=== PATIENT | female | born 1990 | race African-American/Black ===

== ENCOUNTER 2020-03-17 07:15 | Inpatient (IN) | payer BC ==
[2020-03-17 08:14] VITALS: BMI 33.1
[2020-03-17] MEDS ORDERED: AMPICILLIN - 2 GM in SODIUM CHLORIDE 100 ML IVPB ONE (08:25)
--- NOTE | 2020-03-17 08:29 | HP ---
Past Medical History - Primary Care Physician PCP:: Espinoza Prescott - Admission Chief Complaint: 38.4 weeks, gestational HTN, for induction of labor History of Present Illness: 29 yo f with hx of HTN , admitted for pitocin induction, no headache, no blurred vision , no RUQ pain , risks associated with induction and pitocin discussed with patient , agreed to be induced, cx 2 to3 cm,80 vx -2, mi, fhr cat 1, no contraction History Source: Patient Limitations to Obtaining History: No Limitations - Past Medical History Cardiovascular: Yes: HTN ...: 1 ...LMP: 06/25/19 ... Weeks Gestation by Dates: 37.6 ...EDC by Dates: 04/01/20 ...EDC by Sono: 03/28/20 Heme/Onc: Yes: Anemia - Past Surgical History Past Surgical History: Yes: Bariatric Surgery Hx Myomectomy: No Hx Transabdominal Cerclage: No - Smoking History Smoking history: Never smoked Have you smoked in the past 12 months: No - Alcohol/Substance Use Hx Alcohol Use: No - Social History Usual Living Arrangement: Yes: With Spouse History of Recent Travel: No Home Medications - Allergies Allergies/Adverse Reactions: Allergies Allergy/AdvReac Type Severity Reaction Status Date / Time No Known Allergies Allergy Verified 03/17/20 08:56 - Home Medications Home Medications: Ambulatory Orders Tablet 1 tab PO DAILY 03/17/20 Review of Systems - Review of Systems Constitutional: reports: No Symptoms Eyes: reports: No Symptoms HENT: reports: No Symptoms Neck: reports: No Symptoms Cardiovascular: reports: No Symptoms Respiratory: reports: No Symptoms Gastrointestinal: reports: No Symptoms Genitourinary: reports: No Symptoms Breasts: reports: No Symptoms Reported Musculoskeletal: reports: No Symptoms Integumentary: reports: No Symptoms Neurological: reports: No Symptoms Endocrine: reports: No Symptoms Hematology/Lymphatic: reports: No Symptoms Psychiatric: reports: No Symptoms Physical Exam - Maternity Vital Signs: Vital Signs Temperature 98.3 F 03/17/20 08:04 Pulse Rate 83 03/17/20 08:04 Respiratory Rate 18 03/17/20 08:04 Blood Pressure 150/96 03/17/20 08:04 O2 Sat by Pulse Oximetry (%) Constitutional: Yes: Obese Neck: Yes: WNL Cardiovascular: Yes: WNL Lungs: Normal air movement Breast(s): Yes: WNL - Abdominal Exam/OB Number of Fetuses: Single Presentation: Vertex Contractions: No Intensity: Unaware Monitor Mode: External Heart Rate Location: [facility] Category: I Accelerations: Non-Uniform Decelerations: None - Vaginal Exam/OB Vaginal Bleeding: No Speculum Exam: No Dilatation (cm): 2 cm Effacement (%): 80 Amniotic Membrane Status: Intact Presentation: Vertex/Position Station: -2 - Physical Exam Musculoskeletal: Yes: WNL Edema: Yes Edema: LLE: Trace, RLE: Trace Deep Tendon Reflex Grade: Normal +2 Psychiatric: Yes: WNL Hemorrhage Risk Assessment - Risk Factors Medium Risk Factors: Yes: None Risk Score: 1 Risk Level: Medium Risk Problem List - Problems (1) with 38 completed weeks gestation Code(s): Z3A.38 - 38 WEEKS GESTATION OF (2) Gestational hypertension Code(s): O13.9 - GESTATIONAL HTN W/O SIGNIFICANT PROTEINURIA, UNSP TRIMESTER Qualifiers: Trimester: third trimester Qualified Code(s): O13.3 - Gestational [-induced] hypertension without significant proteinuria, third trimester (3) Obesity affecting in third trimester Code(s): O99.213 - OBESITY COMPLICATING , THIRD TRIMESTER Assessment/Plan admit [facility] pitocin induction pain management HELLP profile monitor BP in labor , if symptomatic will start MGso4
[2020-03-17] MEDS ORDERED: ELECTROLYTE-148 SOLN 1,000 ML IV SCH ×2 (08:30→10:30)
[2020-03-17] MEDS ORDERED: OXYTOCIN 30 UNITS in 0.9% NS 30 UNIT/500 ML INFUS.BAG IVPB SCH (08:30)
[2020-03-17] MEDS: DEXTROSE 5%-LACTATED RINGERS 1,000 ML IV SCH (09:00)
[2020-03-17] MEDS ORDERED: OXYTOCIN 30 UNITS in 0.9% NS 30 UNIT/500 ML INFUS.BAG IVPB ONE (09:06)
[2020-03-17] MEDS ORDERED: AMPICILLIN SODIUM 2 GM VIAL ONE (09:06)
[2020-03-17 09:45] LABS: BASO % 0.3 % (0-2.0); EOS % 0.5 % (0-4.5); HEMATOCRIT 32.7 % (32.4-45.2); HEMOGLOBIN 10.8 GM/dL (10.7-15.3); LYMPH % 11.6 % (8-40); MCH 27.2 pg (25.7-33.7); MCHC 33.2 g/dl (32.0-36.0); MEAN PLT VOLUME 8.5 fl (7.5-11.1); MONO % 7.3 % (3.8-10.2); NEUT % 80.3 % (42.8-82.8); PLATELET COUNT 291 K/MM3 (134-434); RBC 3.98 M/mm3 (3.60-5.2); RDW 13.1 % (11.6-15.6); WHITE BLOOD COUNT 13.1 K/mm3 (4.0-10.0)
[2020-03-17 09:54] LABS: INR 0.98 (0.83-1.09); PROTHROMBIN TIME (PATIENT) 11.6 SEC (9.7-13.0)
[2020-03-17 09:57] LABS: ACTIVATED PTT 29.3 SECONDS (25.2-36.5)
[2020-03-17 10:13] LABS: BLOOD UREA NITROGEN 5.9 mg/dL (7-18); CALCIUM 8.9 mg/dL (8.5-10.1); CREATININE 0.6 mg/dL (0.55-1.3); POTASSIUM 3.8 mmol/L (3.5-5.1); URIC ACID 2.9 mg/dL (2.6-7.2)
[2020-03-17] MEDS ORDERED: FENTANYL/BUPIVACAINE/NS/PF - PCEA - 50 ML DISP.SYRIN EP ONE (10:24)
[2020-03-17 10:28] LABS: GAMMA GLUTAMYL TRANSPEPTIDASE 25 U/L (5-85); SGOT/AST 14 U/L (15-37); SGPT/ALT 19 U/L (13-61)
[2020-03-17] MEDS ORDERED: NALOXONE HCL 0.4 MG/ML VIAL IVPUSH PRN (10:28)
[2020-03-17] MEDS ORDERED: FENTANYL/BUPIVACAINE/NS/PF - PCEA - 50 ML DISP.SYRIN EP SCH ×2 (10:30→11:43)
[2020-03-17] MEDS ORDERED: BUPIVACAINE HCL/PF 0.25% (2.5MG/ML) 10 ML VIAL ONE ×2 (10:31→13:26)
[2020-03-17 11:59] LABS: EPI CELLS >36 /uL (0-25.1); HYALINE CASTS 3 /uL (0-3.1); PH,URINE 6.5 (5.0-8.0); URINE APPEARANCE CLOUDY; URINE BACTERIA 433 /uL (0-1359); URINE BILIRUBIN NEGATIVE (NEGATIVE); URINE COLOR YELLOW; URINE GLUCOSE (UA) NEGATIVE (NEGATIVE); URINE KETONE 1+ (NEGATIVE); URINE LEUK ESTERASE 2+ (NEGATIVE); URINE NITRITE NEGATIVE (NEGATIVE); URINE PROTEIN NEGATIVE (NEGATIVE); URINE RBC 330 /uL (0-23.9); URINE UROBILINOGEN 0.2 mg/dL (0.2-1.0); URINE WBC 59 /uL (0-25.8)
[2020-03-17] MEDS ORDERED: AMPICILLIN SODIUM 1 GM VIAL ONE (12:37)
[2020-03-17] MEDS ORDERED: OXYTOCIN 20 UNITS in 0.9% NS 20 UNIT/1,000 ML INFUS.BAG IV ONE (14:30)
[2020-03-17 15:13] LABS: CORD HCO3 23.6 mmHg (20-29); CORD PCO2 71.6 mmHg (30-78); CORD pH 7.136 (7.14-7.44)
[2020-03-17 15:15] LABS: CORD BASE EXCESS -7.7 mmol/L (0-2); CORD HCO3 16.8 mmHg (20-29); CORD PCO2 31.7 mmHg (30-78); CORD pH 7.341 (7.14-7.44)
[2020-03-17] MEDS ORDERED: WITCH HAZEL 50% (TUCKS) 40 PAD/JAR PAD TP PRN (17:53)
[2020-03-17] MEDS ORDERED: BISACODYL 10 MG SUPP.RECT RC PRN (17:53)
[2020-03-17] MEDS ORDERED: BENZOCAINE 28 GM HEMORRHOIDAL OINTMENT TP PRN (17:53)
[2020-03-17] MEDS ORDERED: BENZOCAINE 20% 57 GM BOTTLE TP PRN (17:53)
[2020-03-17] MEDS ORDERED: METHYLERGONOVINE MALEATE 0.2 MG/1 ML AMP IM PRN (17:53)
--- NOTE | 2020-03-17 18:10 | PN ---
Delivery - Delivery Vaginal Delivery: Spontaneous (cx full , head on pernium, , median episiotmy done ,head delivered ,cord around neck once , reduced . ant. and post. shoulder with no difficulty , live baby girl 9/9 . placenta complete . 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
[2020-03-17] MEDS: AMPICILLIN - 1 GM in SODIUM CHLORIDE 100 ML IVPB SCH ×2 (18:20→23:30)
[2020-03-17] MEDS: IBUPROFEN 600 MG TABLET (FP) PO PRN (20:40)
[2020-03-17] MEDS: ACETAMINOPHEN 325 MG TABLET (FP) PO PRN (20:41)
[2020-03-18] MEDS ORDERED: LABETALOL HCL 200 MG TABLET (FP) PO PRN (00:38)
[2020-03-18] MEDS: ACETAMINOPHEN 325 MG TABLET (FP) PO PRN ×2 (05:44→20:46)
[2020-03-18] MEDS: IBUPROFEN 600 MG TABLET (FP) PO PRN (05:45)
--- NOTE | 2020-03-18 06:29 | PN ---
Progress Note (short form) - Note Progress Note: ppd1 , doing well, no c/o, no headache Last Vital Signs Temp Pulse Resp BP Pulse Ox 98.3 F 94 H 18 144/85 99 03/18/20 06:00 03/18/20 06:00 03/18/20 06:00 03/18/20 06:00 03/17/20 14:15 abdomen soft, no distension , no cva , no ruq tenderness uterus firm, non tender no calf tenderness no excess vaginal bleeding plan ambulate , cbc monitor bp for d/c hpme in am if bp normal Problem List - Problems (1) with 38 completed weeks gestation Code(s): Z3A.38 - 38 WEEKS GESTATION OF (2) Gestational hypertension Code(s): O13.9 - GESTATIONAL HTN W/O SIGNIFICANT PROTEINURIA, UNSP TRIMESTER Qualifiers: Trimester: third trimester Qualified Code(s): O13.3 - Gestational [-induced] hypertension without significant proteinuria, third trimester (3) Obesity affecting in third trimester Code(s): O99.213 - OBESITY COMPLICATING , THIRD TRIMESTER
[2020-03-18 08:28] LABS: BASO % 0.2 % (0-2.0); EOS % 0.4 % (0-4.5); HEMATOCRIT 30.4 % (32.4-45.2); HEMOGLOBIN 10.2 GM/dL (10.7-15.3); LYMPH % 13.2 % (8-40); MCH 27.6 pg (25.7-33.7); MCHC 33.5 g/dl (32.0-36.0); MEAN CELL VOLUME 82.4 fl (80-96); MEAN PLT VOLUME 8.8 fl (7.5-11.1); MONO % 6.4 % (3.8-10.2); NEUT % 79.8 % (42.8-82.8); PLATELET COUNT 286 K/MM3 (134-434); RBC 3.69 M/mm3 (3.60-5.2); RDW 13.2 % (11.6-15.6); WHITE BLOOD COUNT 15.4 K/mm3 (4.0-10.0)
[2020-03-18] MEDS: FERROUS SO4 325 MG TABLET (FP) PO SCH ×2 (08:50→17:18)
[2020-03-18] MEDS: PRENATAL VITAMINS W/ FOLIC ACID TABLET (FP) PO SCH (09:13)
[2020-03-18] MEDS ORDERED: PATIENT'S OWN MEDICATION (NON-FORMULARY) (Prenatal Tablet 1 TAB) PO SCH (10:00)
[2020-03-18] MEDS: LABETALOL HCL 200 MG TABLET (FP) PO SCH ×2 (20:41→22:00)
[2020-03-18] MEDS ORDERED: SENNOSIDES/DOCUSATE COMBO (SENNA PLUS) TABLET (UD) PO PRN (22:00)
--- NOTE | 2020-03-19 00:31 | PN ---
Post Progress Note - Subjective Subjective: Patient without acute complaints. Denies headache, change in vision, right upper quadrant pain. Reports tolerating oral intake without nausea or vomiting. Ambulating without dizziness. Denies fevers or chills. Pain well controlled with oral pain medication. with supplementation. Passing flatus. Post Day: 2 Type of Delivery: Vital Signs: Vital Signs Temperature 98.2 F 03/18/20 22:02 Pulse Rate 89 03/18/20 22:02 Respiratory Rate 20 03/18/20 22:02 Blood Pressure 132/72 03/18/20 22:02 O2 Sat by Pulse Oximetry (%) 99 03/17/20 14:15 Breast Exam: Yes: Soft Uterus: Yes: Fundus Firm, Fundus below umbilicus Abdomen/GI: Yes: Abdomen soft, Passing flatus. No: Abdominal Distention, Tender Lochia: Yes: Rubra Lochia, amount: Moderate Extremities: Yes: Calves non-tender, Edema (trace) - Labs Labs: CBC WBC 15.4 K/mm3 (4.0-10.0) H 03/18/20 07:15 RBC 3.69 M/mm3 (3.60-5.2) 03/18/20 07:15 Hgb 10.2 GM/dL (10.7-15.3) L 03/18/20 07:15 Hct 30.4 % (32.4-45.2) L 03/18/20 07:15 MCV 82.4 fl (80-96) 03/18/20 07:15 MCH 27.6 pg (25.7-33.7) 03/18/20 07:15 MCHC 33.5 g/dl (32.0-36.0) 03/18/20 07:15 RDW 13.2 % (11.6-15.6) 03/18/20 07:15 Plt Count 286 K/MM3 (134-434) 03/18/20 07:15 MPV 8.8 fl (7.5-11.1) 03/18/20 07:15 Absolute Neuts (auto) 12.3 K/mm3 (1.5-8.0) H 03/18/20 07:15 Neutrophils % 79.8 % (42.8-82.8) 03/18/20 07:15 Lymphocytes % 13.2 % (8-40) 03/18/20 07:15 Monocytes % 6.4 % (3.8-10.2) 03/18/20 07:15 Eosinophils % 0.4 % (0-4.5) 03/18/20 07:15 Basophils % 0.2 % (0-2.0) 03/18/20 07:15 Nucleated RBC % 0 % (0-0) 03/18/20 07:15 Haptoglobin 107 mg/dL (33-278) 03/17/20 09:19 Assessment/Plan 29 yo PPD # 2 s/p , IOL for gHTN, afebrile, vital signs stable, no PEC, stable for DC home today 1. Patient stable for discharge home today. 2. Patient encouraged to contact MD for: - Severe pain not controlled by oral pain medication - Fevers or chills - Nausea or vomiting, intolerance of oral intake - Headache, change in vision, RUQ pain 3. Discussed BP monitoring at home, labetalol with parameters 4. Patient to follow up in office in 1-2 weeks for BP check, 4-6 weeks for visit
--- NOTE | 2020-03-19 00:32 | DS ---
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 ant. and post. shoulder with no difficulty , live baby girl 9/9 . placenta complete . median episiotmy repaired with 20 chromic , ebl 300 cc , no compliction) Type of Anesthesia: Epidural Episiotomy/Laceration: Midline EBL (cc): 300 Delivery, Single - Stages of Labor Date 1st Stage Initiatied: 03/17/20 Time 1st Stage Initiated: 06:00 Date 2nd Stage Initiated: 03/17/20 Time 2nd Stage Initiated: 14:15 Date of Delivery: 03/17/20 Time of Delivery: 14:39 Time Placenta Delivered: 14:43 - Condition of Infant Shift Boss/Flag Decorator Present: No Infant Gender: Male Weight: 5 lb 6 oz Position: Left, OA Total Hours ROM (Hrs/Mins): 2H19M - 1 Minute Total Score: 9 5 Minutes Total Score: 9 - Feeding Plan Initial Plan: Exclusive throughout hospitalization Discharge Summary Problems reviewed: Yes Reason For Visit: INDUCTION OF LABOR Current Active Problems Gestational hypertension (Acute) Obesity affecting in third trimester (Acute) with 38 completed weeks gestation (Acute) Procedures: Principal: vaginal delivery Other Procedures: pitocin induction of labor Hospital Course: Patient was admitted for induction of labor for gHTN. HD # 1 patient received pitocin, progressd to deliver via PPD # 1 patient ambulated, voiding, passing gas, tolerating oral intake and with adequate pain control. BPs well controlled, she did not develop sx PEC. She fulfilled all criteria for discharge PPD #2 Condition: Good - Instructions Diet, Activity, Other Instructions: Follow up in 1-2 wks for BP check; 4-6 wks for visit Physical activity Resume your normal everyday activity as tolerated no heavy lifting or exercise until seen by your surgeon. You may walk unlimited alexus of and climb stairs. You may resume driving the car when you feel safe and comfortable behind the wheel. No sexual activity as instructed. Diet There are no dietary restrictions. Eat healthy, high-fiber foods. Drink 6 to 8 glasses of liquid each day. This will assist in keeping your bowels are regular. Pain management You may take Tylenol or acetaminophen or Ibuprofen (for example, Motrin, Advil etc.) as prescribed for moderate to severe pain. Call MD for any of the following: Severe pain not relieved by medication Fever of 101 or higher Excessive bleeding or drainage on dressing Inability to urinate Referrals: Espinoza Prescott MD [Staff Physician] - Disposition: HOME - Home Medications Comprehensive Discharge Medication List: Ambulatory Orders Tablet 1 tab PO DAILY 03/17/20
[2020-03-19] MEDS: ACETAMINOPHEN 325 MG TABLET (FP) PO PRN (06:00)
[2020-03-19] MEDS: IBUPROFEN 600 MG TABLET (FP) PO PRN (06:01)
[2020-03-19] MEDS: FERROUS SO4 325 MG TABLET (FP) PO SCH (07:53)
[2020-03-19] MEDS: DEXTROSE 5%-LACTATED RINGERS 1,000 ML IV SCH (10:04)
[2020-03-19] MEDS: PRENATAL VITAMINS W/ FOLIC ACID TABLET (FP) PO SCH (10:28)
[2020-03-19] MEDS: LABETALOL HCL 200 MG TABLET (FP) PO SCH (10:30)
[2020-03-19 13:52] VITALS: BP 145/85; PULSE 80; TEMP 98
== END 2020-03-19 13:00 | disposition home or self-care (01) | DRG 807 ==
LOC: JLDR 07:15 → J3W 20:01
PROVIDERS: ADMIT Obstetrics & Gynecology; ATTEND Obstetrics & Gynecology
PROC: 3E033VJ Introduction of Other Hormone into Peripheral Vein, Percutaneous Approach (ICD-10-PCS; principal; 2020-03-17)
PROC: 10E0XZZ Delivery of Products of Conception, External Approach (ICD-10-PCS; 2020-03-17)
PROC: 0W8NXZZ Division of Female Perineum, External Approach (ICD-10-PCS; 2020-03-17)
DX: O13.3 Gestational [pregnancy-induced] hypertension without significant proteinuria, third trimester (principal); Z37.0 Single live birth; O99.214 Obesity complicating childbirth; E66.9 Obesity, unspecified; O69.81X0 Labor and delivery complicated by cord around neck, without compression, not applicable or unspecified; O99.824 Streptococcus B carrier state complicating childbirth; O99.03 Anemia complicating the puerperium; D64.9 Anemia, unspecified; Z3A.38 38 weeks gestation of pregnancy
CPT/HCPCS: 36415; 36600; 59409; 80048; 81003; 82803; 82977; 83010; 84450; 84460; 84550; 85025; 85610; 85730; 86780; 86850; 86900; 86901

== ENCOUNTER 2022-09-24 19:25 | Inpatient (IN) | payer BC ==
[2022-09-24 21:00] VITALS: BMI 35.0
[2022-09-24] MEDS ORDERED: AMPICILLIN - 2 GM in SODIUM CHLORIDE 100 ML IVPB ONE (21:54)
[2022-09-24] MEDS: LABETALOL HCL 100 MG TABLET (FP) PO SCH (22:00)
[2022-09-24 22:06] LABS: BASO % 0.2 % (0-2.0); EOS % 0.9 % (0-4.5); HEMATOCRIT 31.5 % (32.4-45.2); HEMOGLOBIN 10.4 GM/dL (10.7-15.3); MCH 26.2 pg (25.7-33.7); MCHC 33.1 g/dl (32.0-36.0); MEAN CELL VOLUME 79.1 fl (80-96); MEAN PLT VOLUME 8.4 fl (7.5-11.1); MONO % 7.5 % (3.8-10.2); NEUT % 73.4 % (42.8-82.8); PLATELET COUNT 362 10^3/uL (134-434); RBC 3.99 M/mm3 (3.60-5.2); RDW 13.5 % (11.6-15.6); WHITE BLOOD COUNT 9.6 K/mm3 (4.0-10.0)
[2022-09-24] MEDS ORDERED: LABETALOL HCL 100 MG TABLET (FP) ONE (22:06)
[2022-09-24] MEDS ORDERED: BETAMET ACET/BETAMET NA PH 30 MG/5 ML VIAL ONE (22:06)
[2022-09-24 22:15] LABS: ACTIVATED PTT 30.1 SECONDS (25.2-36.5)
[2022-09-24] MEDS: BETAMET ACET/BETAMET NA PH 30 MG/5 ML VIAL IM SCH (22:19)
[2022-09-24 22:52] LABS: INR 1.03 (0.83-1.09)
[2022-09-24] MEDS: ELECTROLYTE-148 SOLN 1,000 ML IV SCH (23:00)
[2022-09-24] MEDS ORDERED: AMPICILLIN SODIUM 2 GM VIAL ONE (23:05)
[2022-09-24 23:32] LABS: BLOOD UREA NITROGEN 7.3 mg/dL (7-18); CALCIUM 9.1 mg/dL (8.5-10.1)
[2022-09-24 23:36] LABS: CREATININE 0.7 mg/dL (0.55-1.3)
[2022-09-25] MEDS: AMPICILLIN - 1 GM in SODIUM CHLORIDE 100 ML IVPB SCH ×6 (02:30→21:58)
[2022-09-25] MEDS ORDERED: AMPICILLIN SODIUM 1 GM VIAL ONE ×6 (03:31→20:55)
[2022-09-25] MEDS: ELECTROLYTE-148 SOLN 1,000 ML IV SCH ×4 (06:15→22:44)
[2022-09-25] MEDS ORDERED: ACETAMINOPHEN INJECTION 100 ML IVPB ONE (07:44)
[2022-09-25] MEDS ORDERED: ACETAMINOPHEN 1000 MG/100 ML BAG IVPB ONE (07:45)
[2022-09-25 09:12] LABS: BASO % 0.1 % (0-2.0); HEMATOCRIT 27.7 % (32.4-45.2); HEMOGLOBIN 9.6 GM/dL (10.7-15.3); LYMPH % 9.5 % (8-40); MCH 27.1 pg (25.7-33.7); MCHC 34.7 g/dl (32.0-36.0); MEAN PLT VOLUME 8.8 fl (7.5-11.1); MONO % 2.3 % (3.8-10.2); NEUT % 88.1 % (42.8-82.8); PLATELET COUNT 360 10^3/uL (134-434); RBC 3.55 M/mm3 (3.60-5.2); RDW 13.6 % (11.6-15.6); WHITE BLOOD COUNT 9.8 K/mm3 (4.0-10.0)
[2022-09-25 09:32] LABS: CALCIUM 9.2 mg/dL (8.5-10.1)
[2022-09-25 09:33] LABS: ALBUMIN 2.7 g/dl (3.4-5.0); BLOOD UREA NITROGEN 5.1 mg/dL (7-18)
[2022-09-25 09:36] LABS: CREATININE 0.6 mg/dL (0.55-1.3)
[2022-09-25 09:38] LABS: URINE APPEARANCE CLEAR; URINE BILIRUBIN NEGATIVE (NEGATIVE); URINE COLOR YELLOW; URINE GLUCOSE (UA) NEGATIVE (NEGATIVE); URINE KETONE NEGATIVE (NEGATIVE); URINE LEUK ESTERASE NEGATIVE (NEGATIVE); URINE NITRITE NEGATIVE (NEGATIVE); URINE PROTEIN NEGATIVE (NEGATIVE)
[2022-09-25 09:38] LABS: BILIRUBIN,TOTAL 0.4 mg/dL (0.2-1)
[2022-09-25 09:41] LABS: TOT PROT 6.4 g/dl (6.4-8.2)
[2022-09-25 09:43] LABS: POC NITRAZINE POS
[2022-09-25] MEDS ORDERED: LABETALOL HCL 100 MG TABLET (FP) ONE ×2 (09:58→20:54)
[2022-09-25] MEDS: LABETALOL HCL 100 MG TABLET (FP) PO SCH ×2 (10:05→21:30)
[2022-09-25] MEDS ORDERED: SODIUM CHLORIDE NASAL SPRAY 44 ML BOTTLE NS PRN (11:30)
[2022-09-25] MEDS: BETAMET ACET/BETAMET NA PH 30 MG/5 ML VIAL IM SCH (21:56)
[2022-09-25] MEDS ORDERED: OXYTOCIN 30 UNITS in 0.9% NS 30 UNIT/500 ML INFUS.BAG IVPB ONE (22:10)
[2022-09-25] MEDS: OXYTOCIN 30 UNITS in 0.9% NS 30 UNIT/500 ML INFUS.BAG IVPB SCH (22:30)
[2022-09-26] MEDS ORDERED: FENTANYL/BUPIVACAINE/NS/PF - PCEA - 50 ML DISP.SYRIN EP ONE ×3 (00:01→08:39)
[2022-09-26] MEDS: FENTANYL/BUPIVACAINE/NS/PF - PCEA - 50 ML DISP.SYRIN EP SCH ×2 (01:20→08:40)
[2022-09-26] MEDS ORDERED: NALOXONE HCL 0.4 MG/ML VIAL IVPUSH PRN (01:25)
[2022-09-26] MEDS: AMPICILLIN - 1 GM in SODIUM CHLORIDE 100 ML IVPB SCH ×4 (02:00→14:46)
[2022-09-26] MEDS ORDERED: AMPICILLIN SODIUM 1 GM VIAL ONE ×2 (02:11→06:31)
[2022-09-26 03:26] LABS: BASO % 0.1 % (0-2.0); HEMATOCRIT 27.4 % (32.4-45.2); HEMOGLOBIN 9.2 GM/dL (10.7-15.3); LYMPH % 7.5 % (8-40); MCH 25.8 pg (25.7-33.7); MCHC 33.4 g/dl (32.0-36.0); MEAN CELL VOLUME 77.3 fl (80-96); MEAN PLT VOLUME 8.7 fl (7.5-11.1); MONO % 3.2 % (3.8-10.2); NEUT % 89.2 % (42.8-82.8); PLATELET COUNT 339 10^3/uL (134-434); RBC 3.55 M/mm3 (3.60-5.2); RDW 13.7 % (11.6-15.6); WHITE BLOOD COUNT 13.2 K/mm3 (4.0-10.0)
[2022-09-26 03:46] LABS: ALBUMIN 2.7 g/dl (3.4-5.0); BLOOD UREA NITROGEN 6.3 mg/dL (7-18)
[2022-09-26 03:49] LABS: CREATININE 0.6 mg/dL (0.55-1.3)
[2022-09-26 03:51] LABS: BILIRUBIN,TOTAL 0.4 mg/dL (0.2-1); TOT PROT 6.4 g/dl (6.4-8.2)
[2022-09-26] MEDS ORDERED: OXYTOCIN 20 UNITS in 0.9% NS 20 UNIT/1,000 ML INFUS.BAG IV ONE (04:46)
[2022-09-26] MEDS ORDERED: LIDOCAINE HCL 1% PRESERVATIVE FREE - 30ML VIAL ONE (04:47)
[2022-09-26] MEDS: ELECTROLYTE-148 SOLN 1,000 ML IV SCH ×2 (06:43→23:50)
[2022-09-26] MEDS ORDERED: LABETALOL HCL 100 MG TABLET (FP) ONE (08:06)
[2022-09-26] MEDS ORDERED: ACETAMINOPHEN INJECTION 100 ML IVPB ONE (08:08)
[2022-09-26] MEDS ORDERED: LABETALOL HCL 100 MG TABLET (FP) PO ONE (09:00)
[2022-09-26] MEDS ORDERED: ACETAMINOPHEN 1000 MG/100 ML BAG IVPB ONE (09:00)
[2022-09-26] MEDS ORDERED: ACETAMINOPHEN 325 MG TABLET (FP) PO PRN (09:38)
[2022-09-26] MEDS ORDERED: WITCH HAZEL 50% (TUCKS) 40 PAD/JAR PAD TP PRN (09:38)
[2022-09-26] MEDS ORDERED: oxyCODONE HCL 5 MG TABLET PO PRN (09:38)
[2022-09-26] MEDS ORDERED: BENZOCAINE 20% 57 GM BOTTLE TP PRN (09:38)
[2022-09-26] MEDS ORDERED: BENZOCAINE 28 GM HEMORRHOIDAL OINTMENT TP PRN (09:38)
[2022-09-26] MEDS ORDERED: BISACODYL 10 MG SUPP.RECT RC PRN (09:38)
[2022-09-26] MEDS ORDERED: OXYTOCIN 20 UNITS in 0.9% NS 20 UNIT/1,000 ML INFUS.BAG IV SCH (09:45)
[2022-09-26] MEDS: PRENATAL VITAMINS W/ FOLIC ACID TABLET (FP) PO SCH (11:28)
[2022-09-26] MEDS: LABETALOL HCL 100 MG TABLET (FP) PO SCH (11:28)
[2022-09-26 11:38] LABS: CORD BASE EXCESS -5.7 mmol/L (0-2); CORD HCO3 23.5 mmHg (20-29); CORD PCO2 60.9 mmHg (30-78); CORD pH 7.205 (7.14-7.44)
[2022-09-26 11:39] LABS: CORD BASE EXCESS -6.7 mmol/L (0-2); CORD PCO2 43.8 mmHg (30-78); CORD pH 7.277 (7.14-7.44)
[2022-09-26] MEDS ORDERED: ACETAMINOPHEN 325 MG TABLET (FP) ONE (14:02)
[2022-09-26] MEDS: IBUPROFEN 600 MG TABLET (FP) PO PRN (21:35)
[2022-09-26] MEDS: LABETALOL HCL 200 MG TABLET (FP) PO SCH (21:35)
[2022-09-26] MEDS: OXYTOCIN 30 UNITS in 0.9% NS 30 UNIT/500 ML INFUS.BAG IVPB SCH (23:48)
[2022-09-27 09:00] LABS: EOS % 0.1 % (0-4.5); HEMATOCRIT 22.7 % (32.4-45.2); HEMOGLOBIN 7.4 GM/dL (10.7-15.3); LYMPH % 14.3 % (8-40); MCH 25.5 pg (25.7-33.7); MCHC 32.4 g/dl (32.0-36.0); MEAN CELL VOLUME 78.5 fl (80-96); MEAN PLT VOLUME 8.2 fl (7.5-11.1); MONO % 5.2 % (3.8-10.2); NEUT % 80.4 % (42.8-82.8); PLATELET COUNT 289 10^3/uL (134-434); RBC 2.89 M/mm3 (3.60-5.2); RDW 13.7 % (11.6-15.6)
[2022-09-27] MEDS: IBUPROFEN 600 MG TABLET (FP) PO PRN (09:23)
[2022-09-27] MEDS: PRENATAL VITAMINS W/ FOLIC ACID TABLET (FP) PO SCH (09:24)
[2022-09-27] MEDS: LABETALOL HCL 200 MG TABLET (FP) PO SCH ×2 (09:24→22:23)
[2022-09-27] MEDS: FERROUS SO4 325 MG TABLET (FP) PO SCH ×2 (10:14→17:28)
[2022-09-27] MEDS ORDERED: SENNOSIDES/DOCUSATE COMBO (SENNA PLUS) TABLET (UD) PO PRN (22:00)
[2022-09-28] MEDS: PRENATAL VITAMINS W/ FOLIC ACID TABLET (FP) PO SCH (09:26)
[2022-09-28] MEDS: LABETALOL HCL 200 MG TABLET (FP) PO SCH ×2 (09:27→21:21)
[2022-09-28] MEDS: FERROUS SO4 325 MG TABLET (FP) PO SCH ×2 (09:27→18:02)
[2022-09-28 09:28] LABS: BASO % 0.2 % (0-2.0); EOS % 0.4 % (0-4.5); HEMATOCRIT 21.8 % (32.4-45.2); HEMOGLOBIN 7.3 GM/dL (10.7-15.3); LYMPH % 20.5 % (8-40); MCH 26.6 pg (25.7-33.7); MCHC 33.5 g/dl (32.0-36.0); MEAN CELL VOLUME 79.5 fl (80-96); MEAN PLT VOLUME 7.8 fl (7.5-11.1); MONO % 7.7 % (3.8-10.2); NEUT % 71.2 % (42.8-82.8); PLATELET COUNT 292 10^3/uL (134-434); RBC 2.74 M/mm3 (3.60-5.2); RDW 13.6 % (11.6-15.6); WHITE BLOOD COUNT 13.2 K/mm3 (4.0-10.0)
[2022-09-28 09:29] VITALS: RESP 18
[2022-09-29 09:08] VITALS: BP 134/93; PULSE 76; TEMP 98.2
[2022-09-29] MEDS: LABETALOL HCL 200 MG TABLET (FP) PO SCH (09:43)
[2022-09-29] MEDS: FERROUS SO4 325 MG TABLET (FP) PO SCH (09:44)
[2022-09-29] MEDS: PRENATAL VITAMINS W/ FOLIC ACID TABLET (FP) PO SCH (09:44)
== END 2022-09-29 13:30 | disposition home or self-care (01) | DRG 806 ==
LOC: JLDR 19:25 → J3W 09-26 15:00
PROVIDERS: ADMIT Obstetrics & Gynecology; ATTEND Obstetrics & Gynecology
PROC: 10E0XZZ Delivery of Products of Conception, External Approach (ICD-10-PCS; principal; 2022-09-26)
PROC: 0W8NXZZ Division of Female Perineum, External Approach (ICD-10-PCS; 2022-09-26)
PROC: 0HQ9XZZ Repair Perineum Skin, External Approach (ICD-10-PCS; 2022-09-26)
DX: O42.113 Preterm premature rupture of membranes, onset of labor more than 24 hours following rupture, third trimester (principal); O10.92 Unspecified pre-existing hypertension complicating childbirth; Z37.0 Single live birth; O99.214 Obesity complicating childbirth; E66.9 Obesity, unspecified; O90.81 Anemia of the puerperium; Z98.84 Bariatric surgery status; Z3A.36 36 weeks gestation of pregnancy
CPT/HCPCS: 36415; 36600; 59409; 80048; 80053; 81003; 82803; 82977; 83010; 83986-QW; 84450; 84460; 84550; 85025; 85045; 85610; 85730; 86780; 86850; 86900; 86901; 88307-TC; 96372; C9803-CS; U0003; U0005